=== PATIENT | male | born 1945 | race Caucasian/White ===

== ENCOUNTER 2021-03-10 06:43 | Day surgery (SDC) | payer MEDICARE, MEDICAID ==
[~2021-03-10] VITALS: Ht 144.8 cm; Wt 49.6 kg
[2021-03-10] MEDS ORDERED: normal saline 1000ml 1,000 ML IV PRN (07:15)
[2021-03-10] MEDS ORDERED: LISI20TA28 PO (07:51)
[2021-03-10] MEDS ORDERED: HYDR25TA4 PO (07:51)
[2021-03-10] MEDS ORDERED: CHOL20002 PO (07:51)
[2021-03-10] MEDS ORDERED: DULO60CA65 PO (07:51)
[2021-03-10] MEDS ORDERED: QUET25TA36 PO (07:51)
[2021-03-10] MEDS ORDERED: MELATONIN PO (07:55)
[2021-03-10] MEDS ORDERED: ACET-1025 PO (07:55)
[2021-03-10 08:10] LABS: BASOPHILS % (AUTO) 0.5 % (0-1); EOSINOPHILS # (AUTO) 0.1 X10'3 (0-0.9); EOSINOPHILS % (AUTO) 1.3 % (0-6); HEMATOCRIT 36.4 % (42.0-52.0); HEMOGLOBIN 12.1 g/dl (14.0-17.9); LYMPHOCYTES # (AUTO) 1.8 X10'3 (1.1-4.8); LYMPHOCYTES % (AUTO) 19.4 % (21-51); MEAN CORPUSCULAR HEMOGLOBIN 32.9 PG (27.0-31.0); MEAN CORPUSCULAR HGB CONC 33.3 g/dL (33.0-36.5); MEAN CORPUSCULAR VOLUME 98.8 FL (78-98); MEAN PLATELET VOLUME 9.3 FL (7.4-10.4); MONOCYTES # (AUTO) 0.8 X10'3 (0-0.9); MONOCYTES % (AUTO) 8.7 % (2-12); NEUTROPHILS # (AUTO) 6.6 X10'3 (1.8-7.7); NEUTROPHILS % (AUTO) 70.1 % (42-75); PLATELET COUNT 235 X10'3 (140-440); RED BLOOD COUNT 3.69 X10'6 (4.70-6.10); RED CELL DISTRIBUTION WIDTH 14.7 % (11.5-14.5); WHITE BLOOD COUNT 9.4 X10'3 (4.5-11.0)
[2021-03-10] MEDS ORDERED: iohexol 300 MG/1 ML 50ml polymer ONE (08:57)
[2021-03-10] MEDS ORDERED: LIDOcaine 1%/PF 5ML 10 MG/ML VIAL ONE (08:57)
[2021-03-10] MEDS ORDERED: heparin sodium, porcine/PF 100unit/ml 5ML syringe ONE (08:57)
[2021-03-10] MEDS ORDERED: fentaNYL/PF 50MCG/1 ML 2ML syringe ONE (08:57)
[2021-03-10] MEDS ORDERED: midazolam 1 mg/ML 2ml injection ONE (08:57)
[2021-03-10] MEDS ORDERED: glucagon, human recombinant 1mg kit ONE (08:57)
[2021-03-10 11:00] VITALS: BP 81/44
--- NOTE | 2021-03-10 11:00 | NUR ---
Contacted pt [facility] workerSabina. She is aware of discharge time. Pt sitting up in bed, drinking oral fluids. Vs stable as charted.
[2021-03-10 11:15] VITALS: BP 85/47
[2021-03-10 11:30] VITALS: BP 84/47
[2021-03-10 11:45] VITALS: BP 82/44
== END 2021-03-10 12:00 | disposition home or self-care (01) ==
LOC: SSTAY O 06:43
PROVIDERS: ATTEND Radiology Vascular & Interventional Radiology
DX: C16.0 Malignant neoplasm of cardia (principal); C78.7 Secondary malignant neoplasm of liver and intrahepatic bile duct; I10 Essential (primary) hypertension; M19.90 Unspecified osteoarthritis, unspecified site; F41.9 Anxiety disorder, unspecified; F32.9 Major depressive disorder, single episode, unspecified; Z72.89 Other problems related to lifestyle; F12.11 Cannabis abuse, in remission; Z98.890 Other specified postprocedural states; Z79.899 Other long term (current) drug therapy; Z86.12 Personal history of poliomyelitis
CPT/HCPCS: 36415; 36561; 76937; 77001; 85025; C1769; C1788; C1894; J1610; J1642; J2250; J3010; Q9967